=== PATIENT | male | born 1955 | race Caucasian/White ===

== ENCOUNTER 2018-12-18 09:47 | Day surgery (SDC) | payer BC ==
[2018-12-18] MEDS ORDERED: LIDOCAINE HCL 1% MPF 30 SOL ONE (10:21)
[2018-12-18] MEDS ORDERED: PROPOFOL 500 MG/50 ML EMU IV ONE (10:21)
[2018-12-18 11:29] VITALS: BP 112/65; PULSE 56; RESP 16; TEMP 97.2; O2SAT 100
== END 2018-12-18 11:52 | disposition home or self-care (01) ==
LOC: SURG 09:47
PROVIDERS: ATTEND Surgery
DX: Z12.11 Encounter for screening for malignant neoplasm of colon (principal)
CPT/HCPCS: J2001; J2704